=== PATIENT | male | born 1970 ===

== ENCOUNTER 2017-10-21 06:34 | Day surgery (SDC) | payer BC ==
[~2017-10-21] VITALS: Ht 195.6 cm; Wt 88.5 kg
[2017-10-21] VITALS (9 sets, daily range): BP systolic 111–139; BP diastolic 73–85
[~2017-10-21 06:34] MED LIST: TIVICAY10 MG PO; TRUVADA 200 MG1 EAC1 ORAL
[2017-10-21] MEDS ORDERED: LR 1000ml 1,000 ML IVLG ONE (07:00)
[2017-10-21] MEDS ORDERED: LR 1000ml 1,000 ML IVLG SCH (07:00)
--- NOTE | 2017-10-21 07:52 | Pre-Procedure Note/Attestation ---
Pre-Procedure Note/Attestation Complete Prior to Procedure Planned Procedure: not applicable Procedure Narrative: EGD/Colon Indications for Procedure Pre-Operative Diagnosis: Heme (+) Attestation I attest that I discussed the nature of the procedure; its benefits; risks and complications; and alternatives (and the risks and benefits of such alternatives ), prior to the procedure, with the patient (or the patient's legal cash posting representative). I attest that, if there was a reasonable possibility of needing a blood transfusion, the patient (or the patient's legal cash posting representative) was given the [facility] standardized written summary, pursuant to the Berto Kristy Blood Safety Act ([place] Health and Safety Code # 1645, as amended). I attest that I re-evaluated the patient just prior to the surgery and that there has been no change in the patient's H&P, except as documented below: ZAIDA HARRISON Oct 21, 2017 07:52
--- NOTE | 2017-10-21 07:53 | Short Stay Surgery H&P ---
History of Present Illness History of Present Illness Chief Complaint Heme (+) HPI Jared Muñiz is a 47 year old male who was admitted on for Blood In Stool Patient History Allergies: Coded Allergies: No Known Allergies (Unverified , 10/21/17) PAST MEDICAL HISTORY: Past Surgeries: Social History: Medication History Scheduled Dolutegravir Sodium (Tivicay), 10 MG PO DA, (Reported) Emtricitabine/Tenofovir 200-300MG* (Truvada 200-300MG*), 1 TAB ORAL DAILY, ( Reported) Physical Exam Vital Signs Last Vital Signs Date Time Temp Pulse Resp B/P (MAP) Pulse Ox O2 Delivery O2 Flow Rate FiO2 10/21/17 07:07 97.7 61 18 128/73 98 Room Air Plan Attestation Are the patient's medical conditions optimized for surgery? ZAIDA HARRISON Oct 21, 2017 07:53
[2017-10-21] MEDS ORDERED: Midazolam 2mg/2ml Inj ONE (08:00)
[2017-10-21] MEDS ORDERED: Propofol 200mg/20ml IV ONE (08:00)
[2017-10-21] MEDS ORDERED: LR 1000ml ONE (08:00)
[2017-10-21] MEDS ORDERED: Lidocaine 1% MPF 10mg/ml 5ml ONE (08:00)
--- NOTE | 2017-10-21 08:17 | Anethesia Preoperative Eval ---
Anesthesia Pre-op PMH/ROS General Date of Evaluation: Oct 21, 2017 Time of Evaluation: 07:40 Anesthesiologist: Rahul ASA Score: ASA 2 Mallampati Score Class I : Soft palate, uvula, fauces, pillars visible Class II: Soft palate, uvula, fauces visible Class III: Soft palate, base of uvula visible Class IV: Only hard plate visible Mallampati Classification: Class III Surgeon: Sudha Diagnosis: anemia Surgical Procedure: EGD with colonoscopy Anesthesia History: none Family History: no anesthesia problems Allergies: Coded Allergies: No Known Allergies (Unverified , 10/21/17) Past Medical History Cardiovascular: Denies: HTN, CAD, NE, valve dz, arrhythmia, other Pulmonary: Denies: asthma, COPD, KERA, other Gastrointestinal/Genitourinary: Denies: GERD, CRI, ESRD, other Neurologic/Psychiatric: Denies: dementia, CVA, depression/anxiety, TIA, other Endocrine: Denies: DM, hypothyroidism, steroids, other HEENT: Denies: cataract (L), cataract (R), glaucoma, [place] (L), [place] (R), other Hematology/Immune: Reports: anemia, other - HIV Musculoskeletal/Integumentary: Reports: other - back pain Anesthesia Pre-op Phys. Exam Physician Exam Last Vital Signs Date Time Temp Pulse Resp B/P (MAP) Pulse Ox O2 Delivery O2 Flow Rate FiO2 10/21/17 07:07 97.7 61 18 128/73 98 Room Air Constitutional: NAD Neurologic: CN 2-12 intact Cardiovascular: RRR Respiratory: CTA Gastrointestinal: S/NT/ND Airway Exam Mallampati Score: Class III MO: full ROM: full Teeth: intact Dentures: no upper, no lower Anesthesia Pre-op A/P Labs reviewed Studies Pre-op Studies: EKG Risk Assessment & Plan Assessment: A&Ox3 Plan: MAC Status Change Before Surgery: No Pre-Antibiotics Given Within 1 Hr of Incision: Yecenia So CRNA Oct 21, 2017 08:17
--- NOTE | 2017-10-21 08:18 | Immediate Post-Op Evaluation ---
Immediate Post-Op Evalulation Immediate Post-Op Evalulation Procedure: EGD/Colonoscopy Date of Evaluation: Oct 21, 2017 Time of Evaluation: 08:38 IV Fluids: LR Blood Products: 0 Estimated Blood Loss: 0 Urinary Output: 0 Blood Pressure Systolic: 135 Blood Pressure Diastolic: 80 Pulse Rate: 77 Respiratory Rate: 18 O2 Sat by Pulse Oximetry: 100 Temperature (Fahrenheit): 98.9 Pain Score (1-10): 0 Nausea: No Vomiting: No Patient Status: awake, reacts, patent Hydration Status: adequate Given Within 1 Hr of Incision: No - none per surgeon Yecenia Kay CRNA Oct 21, 2017 08:18
--- NOTE | 2017-10-21 08:19 | 48 Hour Post Anesthesia Eval ---
Post Anesthesia Evaluation Procedure: EGD/Colonoscopy Date of Evaluation: Oct 21, 2017 Time of Evaluation: 09:16 Blood Pressure Systolic: 133 0: 78 Pulse Rate: 79 Respiratory Rate: 20 Temperature (Fahrenheit): 98.8 O2 Sat by Pulse Oximetry: 100 Airway: patent Nausea: No Vomiting: No Pain Intensity: 0 Hydration Status: adequate Cardiopulmonary Status: WNL Mental Status/LOC: patient returned to baseline Follow-up care needed: patient intructions given Yecenia Kay CRNA Oct 21, 2017 08:19
--- NOTE | 2017-10-21 09:08 | Endoscopy Procedure Note ---
Endoscopy Procedure Note Indication for Procedure: Heme (+) Procedures Performed: EGD, colonoscopy Operative Findings/Diagnosis: mild erosive gastritis Specimen: yes Pt Tolerated Procedure Well: Yes Estimated Blood Loss: none Anesthesiologist: see report Anesthesia: MAC Medication Given: see anesthesia record PEG: y Implant(s) used?: No 50 yrs or older w/o bx or poly: Not Applicable 10yrs. F/U not recommended: Not Applicable If not recommended, why?: ZAIDA HARRISON Oct 21, 2017 09:08
--- NOTE | 2017-10-21 09:09 | Brief Operative Note ---
Immediate Post Operative Note Operative Note Chief Complaint: heme (+) Pre-op Diagnosis: Heme (+) Procedure: PEG/Bx Surgeon: claudia Anesthesiologist: see report Anesthesia: moderate sedation Specimen: yes Complications: none Condition: stable Fluids: see anesth Estimated Blood Loss: none Drains: none Implant(s) used?: No ZAIDA HARRISON Oct 21, 2017 09:09
--- NOTE | 2017-10-22 11:15 | Operative Note - Dictated ---
DATE OF OPERATION: 10/21/2017 GASTROENTEROLOGY PROCEDURE REPORT PROCEDURE PERFORMED: Upper gastroendoscopy with biopsy as well as colonoscopy with biopsy. SURGEON: Ann-Marie Haley M.D. ANESTHESIA: Please see the separate anesthesiologist notes for details. PRE-ENDOSCOPIC DIAGNOSES: Heme-positive stools. POST-ENDOSCOPIC DIAGNOSES: 1. Mild erosive gastritis status post biopsy. 2. Mild erosive duodenitis status post biopsy. 3. Scattered specks of erythema in the colon of unclear significance status post random biopsies of the colon at 60 cm, 40 cm, and 20 cm from the rectum. 4. Normal terminal ileum. 5. Mild internal hemorrhoids. PROCEDURE: The procedure, its risks, indications, alternatives, and possible complications including, but not limited to, bleeding, infection, perforation, , and anesthesia complications were explained to the patient and informed consent was obtained. The patient was then sedated in the left lateral decubitus position. A diagnostic upper endoscope was introduced through the oropharynx and advanced to the duodenum. The endoscope was then gradually withdrawn and the mucosa was examined carefully. Thereafter, a rectal exam was done and the colonoscope was introduced in the rectum and advanced to 20 cm into the terminal ileum. The colonoscope was then gradually withdrawn and the mucosa was examined carefully. Examination of the upper and lower gastrointestinal mucosa revealed the findings listed above. Biopsies were obtained as listed above. The patient was left to recovery in good condition. COMPLICATIONS: None. ASSESSMENT: This patient's heme-positive stools may be due to the erosive gastritis and erosive duodenitis seen on this examination. Biopsies will be evaluated to rule out Helicobacter pylori. The significance of the few red spots seen in the colon is doubtful, but biopsies were done to rule out evidence of microscopic colitis. RECOMMENDATIONS: 1. Follow up biopsy results. 2. Outpatient followup. Ann-Marie Haley M.D. DR: YOLANDA JOB#: [id number] CC:
== END 2017-10-21 09:45 | disposition home or self-care (01) ==
LOC: GAS 06:34
DX: K29.70 Gastritis, unspecified, without bleeding (principal); K29.80 Duodenitis without bleeding; K25.9 Gastric ulcer, unspecified as acute or chronic, without hemorrhage or perforation; K64.8 Other hemorrhoids; R19.5 Other fecal abnormalities; K63.89 Other specified diseases of intestine; Z21 Asymptomatic human immunodeficiency virus [HIV] infection status; Z82.5 Family history of asthma and other chronic lower respiratory diseases; Z82.49 Family history of ischemic heart disease and other diseases of the circulatory system
CPT/HCPCS: 43239; 45380; J2250; J2704; J7120; 94003; 94150